=== PATIENT | female | born 1945 | race Caucasian/White ===

== ENCOUNTER → 2016-06-23 | Outpatient (CLI) | payer OTHER | LOC: MMPC 10:00 | PROVIDERS: ATTEND Podiatrist Foot & Ankle Surgery | DX: B35.1 Tinea unguium (principal) | CPT/HCPCS: 99213; G0463 ==

== ENCOUNTER → 2016-09-27 | Outpatient (CLI) | payer OTHER | LOC: MMPC 09:00 | PROVIDERS: ATTEND Family Medicine | DX: I10 Essential (primary) hypertension (principal); J45.909 Unspecified asthma, uncomplicated; M25.521 Pain in right elbow; Z23 Encounter for immunization | CPT/HCPCS: 90732; 99214; G0463 ==

== ENCOUNTER → 2016-10-21 | Outpatient (CLI) | payer OTHER | LOC: MMPC 10:00 | PROVIDERS: ATTEND Podiatrist Foot & Ankle Surgery | DX: B35.1 Tinea unguium (principal) | CPT/HCPCS: 99212; G0463 ==

== ENCOUNTER 2016-11-24 08:32 | Emergency (ER) | payer OTHER ==
[2016-11-24] MEDS ORDERED: IPRATROPIUM/ALBUTEROL SULFATE 3 ML NEB NEB ONE (08:50)
[2016-11-24] MEDS ORDERED: Belladon/PHENobarbital Elixir 10 ML, Lidocaine Viscous Liquid 2% 15 ML, Mag Hyd/Al Hyd/... PO ONE ×3 (08:50)
[2016-11-24] MEDS ORDERED: Pantoprazole Inj 40 MG in Normal Saline Flush 10 ML IVP ONE (08:50)
[2016-11-24 08:58] LABS: BASOPHILS # (AUTO) 0.05 10*3/UL; BASOPHILS % (AUTO) 0.3 % (0-1); EOSINOPHILS # (AUTO) 0.64 10*3/UL; EOSINOPHILS % (AUTO) 4.4 % (0-8); HEMATOCRIT 38.5 % (37.0-47.0); HEMOGLOBIN 13.1 g/dL (12.0-16.0); LYMPHOCYTES # (AUTO) 1.06 10*3/uL; MEAN CORPUSCULAR HEMOGLOBIN 31.1 PG (27-31); MEAN CORPUSCULAR VOLUME 91.4 FL (81-99); MONOCYTES # (AUTO) 1.34 10*3/UL (0.3-0.8); MONOCYTES % (AUTO) 9.2 % (5-15); NEUTROPHILS # (AUTO) 11.37 10*3/UL; NEUTROPHILS % (AUTO) 78.5 % (50-80); RED BLOOD COUNT 4.21 10^6/uL (4.20-5.40)
[2016-11-24 08:59] LABS: PLATELET MORPHOLOGY COMMENT NORMAL MORPHOLOGY (NORM); RBC MORPHOLOGY COMMENT NORMAL MORPHOLOGY (NORM); WBC MORPHOLOGY COMMENT NORMAL MORPHOLOGY (NORM)
[2016-11-24] MEDS ORDERED: Sodium Chloride 0.9% 1,000 ML PRIMARY IV ONE (09:03)
[2016-11-24 09:04] LABS: BLOOD UREA NITROGEN 12 mg/dL (7-22); CALCIUM 9.6 mg/dL (8.7-10.7); EST GLOMERULAR FILTRATION > 60 (>60 ml/min/1.73m(2)); SERUM ALBUMIN 4.3 g/dL (3.5-4.8)
--- NOTE | 2016-11-24 09:04 | PDOC ---
Dyspnea HPI - General Chief Complaint: Chest Pain Stated Complaint: chest pain Date Seen by Provider: 11/24/16 Time Seen by Provider: 09:04 - History of Present Illness Initial Comments: Patient's very nice 71-year-old woman who presents to the emergency department after having onset of some shortness of breath and some neck symptoms. She states that she was fine in her usual state of health through the morning till about 5 AM. Around 5 AM she started to develop some increased shortness of breath which she thought might just be asthma. He took some inhaled medications did not seem to get much better than started to develop significant pain in the base of her neck anteriorly which is similar to pain that she gets when she has reflux. Ultimately she decided to come to the emergency department for further evaluation. Here in the emergency department she is complaining that she still has that pain in the base of her neck and she still feels like she can't get a deep breath. If she does take a deep breath she does have discomfort in the base of her neck and into her chest some. She denies any fever or chills recent cough no neck trauma she also has no past history of cardiac issues however however she does take hormone replacement therapy. - Patient Home Medications Home Medications: Home Medications Cetirizine HCl [Zyrtec] 10 mg PO QD PRN tab 02/20/13 Diphenhydramine HCl [Benadryl] 50 mg PO Q4H PRN cap 02/20/13 Albuterol Sulfate [Proventil Hfa] 1 - 2 puff INH Q4-6H PRN #1 puff 08/27/14 Aspirin 81 mg PO DAILY tab 05/13/16 Biotin 800 mcg PO tab 05/13/16 Calcium Carbonate [Calcium] 1 tab PO QD tab 05/13/16 Glucosamine Sulfate 2Kcl [Glucosamine] 1,000 mg PO QD tab 05/13/16 Ubidecarenone [Co Q10] 200 mg PO QD PRN cap 05/13/16 Omeprazole Magnesium [Prilosec Otc] 1 tab PO QD #90 tab 09/03/16 Estradiol 0.5 mg PO QD #90 tab 11/23/16 Losartan Potassium 1 tab PO QD #90 tab 11/23/16 - Patient Allergies Allergies/Adverse Reactions: Allergies Allergy/AdvReac Type Severity Reaction Status Date / Time Sulfa (Sulfonamide Allergy Mild RASH Verified 11/24/16 08:42 Antibiotics) Past Medical History - heen HEENT History: Denies History Cardiovascular History: Denies History Respiratory History: Asthma Gastrointestinal History: Denies History Genitourinary History: Denies History Musculoskeletal History: Other (please comment) (Multiple surgeries on her right hand) Past Medical History Reviewed: Reviewed - No Changes ROS - Limitations ROS Limitations: No Limitations Constitution: DENIES: Chills, Fever Neurological: REPORTS: Denies Neuro Symptoms Gastrointestinal: REPORTS: Denies GI Symptoms Dyspnea Physical Exam - General Appearance General Appearance: REPORTS: Alert, Cooperative, No Acute Distress - HEENT HEENT: POSITIVE: Head Inspection Nml, Eyes Inspection Nml - Neck Neck: REPORTS: Normal Inspection - Respiratory Respiratory: REPORTS: No Respiratory Distress, Breath Sounds Normal, No Pleuritic Chest Pain - Cardiovascular Cardiovascular: REPORTS: Regular Rate and Rhythm, Heart Sounds Normal - Abdomen Abdomen: Soft: (All Quadrants), Normal Bowel Sounds: (All Quadrants), Denies Tenderness: (All Quadrants) - Skin Skin: REPORTS: Intact, Normal For Race Patient Care Time - Estimated PCT Patient Care Time (In Minutes): 15 Vital Signs - VS Reviewed Vital Signs Reviewed: Yes Discharge Clinical Impression: Dyspnea Qualifiers: Dyspnea type: dyspnea on exertion Qualifier Code: (R06.09) Other forms of dyspnea Condition: Stable
[2016-11-24 09:11] VITALS: RESP 16; TEMP 97.3
--- NOTE | 2016-11-24 09:51 | DI ---
PA /LATERAL CHEST X-RAY, 11/24/2016 8:50 AM : Clinical History: Shortness of breath. Previous Exam: None at this facility. There is no acute soft tissue or bony abnormality. Heart size is normal. Lungs are clear. Mediastinal structures are normal. There are no pulmonary nodules. There is mild to moderate dextroscoliosis of the mid lumbar spine. Reading: Normal chest x-ray.
[2016-11-24] MEDS ORDERED: ONDANSETRON 4 MG/2 ML VIAL IVP ONE (10:22)
[2016-11-24] MEDS ORDERED: MORPHINE SULFATE 2 MG/1 ML IVP ONE (10:22)
--- NOTE | 2016-11-24 11:21 | DI ---
CT ANGIOGRAM OF THE CHEST, 11/24/2016 10:06 AM : Clinical History: Pleuritic chest pain with elevated D-dimer test. Previous Exam: None at this facility. Scans are performed from the base of the neck to the lower lung bases following IV administration of 65 mL of Isovue 300. Proprietary automated bolus tracking software was not used to verify the timing of the injection. The base of the neck and thoracic inlet are normal. There are no abnormal axillary, supraclavicular, mediastinal, or hilar nodes. The heart in the ascending and descending aorta are normal. The pulmonar y arteries are normal. There is no pulmonary arterial hypertension. There is no evidence of pulmonary embolism or pulmonary infarction. The lungs are clear and there are no pulmonary nodules or masses. Both adrenal glands, the spleen and the visualized portions of the pancreas there is diffuse fatty in filtration in the visualized portions of the liver are otherwise normal. Are normal. READIN. Normal CTA of the chest. There are no pulmonary emboli or pulmonary infarcts. The aorta is normal . 2. Fatty infiltration of the liver.
[2016-11-24] MEDS ORDERED: KETOROLAC 15 MG/1 ML VIAL IVP ONE (11:25)
--- NOTE | 2016-11-24 14:43 | EKG ---
[address] [address] Measurements Intervals [place] Rate: 85 P: 73 MT: 156 QRS: 59 QRSD: 102 T: 39 QT: 333 QTc: 375 Interpretive Statements SINUS RHYTHM WITH OCCASIONAL ECTOPIC PREMATURE COMPLEXES No previous ECG available for comparison Electronically Signed On 11-25-16 09:53:48 MDT by Barry Jaramillo [email or web address]
--- NOTE | 2016-11-24 16:28 | PDOC ---
Transfer of Care - Care Accepted Time Care Transferred: 09:00 Report from Transferring Physician Received: Yes (Dr. Henson) MDM / ED Course: The patient is a 71-year-old female who had presented to the emergency department with complaints of pain in her neck as well as between her shoulder blades. She states that she has a history of asthma and when she woke up this morning she seemed like she was having some increased wheezing as well as some pain up in her neck/throat region. She tried taking her inhaler which did not seem to help a whole lot. The pain subsequently became worse in her neck and between her shoulder blades. This pain is worsened with taking a deep breath. She subsequently presented to the emergency department. She was initially evaluated per Dr. Henson. Initial EKG showed a normal sinus rhythm with no acute changes. Blood work and chest x-ray had been ordered. The patient also received a DuoNeb as well as a GI cocktail and IV Protonix. She does report some increased reflux symptoms recently. In addition she has been having some low back pain with radiation down her left leg for about a month. She took a prednisone taper which she completed about 2 weeks ago. In addition she has been taking ibuprofen 800 mg every 4-6 hours recently. She denies any associated nausea, abdominal pain, numbness or weakness in her extremities or any other associated complaints. She does not have any known history of heart disease. She does have a history of hypertension. Home Medications: Home Medications Cetirizine HCl [Zyrtec] 10 mg PO QD PRN tab 02/20/13 Diphenhydramine HCl [Benadryl] 50 mg PO Q4H PRN cap 02/20/13 Albuterol Sulfate [Proventil Hfa] 1 - 2 puff INH Q4-6H PRN #1 puff 08/27/14 Aspirin 81 mg PO DAILY tab 05/13/16 Biotin 800 mcg PO DAILY tab 05/13/16 Calcium Carbonate [Calcium] 1 tab PO QD tab 05/13/16 Glucosamine Sulfate 2Kcl [Glucosamine] 1,000 mg PO QD tab 05/13/16 Ubidecarenone [Co Q10] 200 mg PO QD PRN cap 05/13/16 Omeprazole Magnesium [Prilosec Otc] 1 tab PO QD #90 tab 09/03/16 Estradiol 0.5 mg PO QD #90 tab 11/23/16 Losartan Potassium 1 tab PO QD #90 tab 11/23/16 Allergies/Adverse Reactions: Allergies Sulfa (Sulfonamide Antibiotics) Allergy (Mild, Verified 11/24/16 08:42) RASH Vital Signs Reviewed: Yes Nurse's Notes Reviewed & Considered: Yes - Pending Patient Care Items Pending Patient Care Items: POSITIVE: Labs, X-ray Results - Re-Evaluation of Patient Disposition of Patient: POSITIVE: Discharged Counseled: POSITIVE: Patient, RE: Lab Results, RE: Radiology Results, RE: DX, RE : Need for F/U - Results Reviewed Lab Results Reviewed by Me: Yes Lab Results: Laboratory Results 11/24/16 11/24/16 11/24/16 Range/Units 08:50 09:37 11:31 WBC 14.50 H (4.8-10.8) 10^3/uL RBC 4.21 (4.20-5.40) 10^6/uL Hgb 13.1 (12.0-16.0) g/dL Hct 38.5 (37.0-47.0) % MCV 91.4 (81-99) FL MCH 31.1 H (27-31) PG MCHC 34.0 (33-37) g/dL RDW Std Deviation 41.4 (39-50) fL RDW Coeff of Brie 12.5 (11.5-14.5) % Plt Count 301 (140-350) 10*3/uL MPV 9.0 (7.4-12.2) FL Immature Gran % (Auto) 0.3 (0-5) % Neut % (Auto) 78.5 (50-80) % Lymph % (Auto) 7.3 L (10-50) % [place] % (Auto) 9.2 (5-15) % Eos % (Auto) 4.4 (0-8) % Baso % (Auto) 0.3 (0-1) % Immature Gran # (Auto) 0.04 10*3/UL Neut # (Auto) 11.37 10*3/UL Lymph # (Auto) 1.06 10*3/uL [place] # (Auto) 1.34 H (0.3-0.8) 10*3/UL Eos # (Auto) 0.64 10*3/UL Baso # (Auto) 0.05 10*3/UL WBC Morphology Comment Normal morphology (NORM) Plt Morphology Comment Normal morphology (NORM) RBC Morph Comment Normal morphology (NORM) D-Dimer 0.62 H (0.00-0.59) mg/L Sodium 127 L (135-145) meq/L Potassium 4.7 (3.8-5.2) meq/L Chloride 93 L (98-112) meq/L Carbon Dioxide 25 (23-33) meq/L Anion Gap 9 (5-20) BUN 12 (7-22) mg/dL Creatinine 0.6 (0.50-1.20) mg/dL Estimated GFR > 60 (>60 ml/min/1.73m(2)) BUN/Creatinine Ratio 20.00 (6-20) Glucose 102 (78-110) mg/dL Calculated Osmolality 263.0 L (267-292) mOsm/kg Calcium 9.6 (8.7-10.7) mg/dL Total Bilirubin 0.7 (0.3-1.2) mg/dL AST 33 (8-39) IU/L ALT 36 (9-52) IU/L Alkaline Phosphatase 66 (38-126) IU/L Troponin I < 0.012 < 0.012 (< 0.040) ng/mL NT-Pro-B Natriuret Pep 174 H (0-125) PG/ML Total Protein 7.5 (6.1-8.0) g/dL Albumin 4.3 (3.5-4.8) g/dL Globulin 3.1 (2.50-4.10) g/dL Albumin/Globulin Ratio 1.30 (1.3-2.0) mg/g EKG Interpreted/Reviewed By Me:: Yes EKG Interpretation:: POSITIVE: Normal Sinus Rhythm, Normal Rate, Normal Intervals, Normal QRS, Normal ST/T - Consult Recommendations:: When I took over care of the patient lab and x-ray were still pending. These were reviewed and revealed a normal troponin with mildly elevated d-dimer. Her chest x-ray was unremarkable, her other lab work was unremarkable except for a sodium which was slightly low at 127 and a white count that was elevated at 14. Shortly after my initial evaluation she stated that the pain between her shoulders was becoming somewhat worse. Her d-dimer was mildly elevated and she underwent CTA of the chest. She was offered morphine and Zofran for pain however refused. The CTA of her chest was normal per radiologist with no evidence of PE or dissection. Findings were discussed with the patient. She was having continued pain between her shoulder blades and some in her neck. The GI cocktail did not really help significantly. Her breathing she stated felt significantly better after the DuoNeb. I did recommend that the patient be admitted for further cardiac monitoring and testing. She stated that she did not want to be admitted in the hospital. She agreed to have a repeat troponin which was done and was also negative. In addition after her CTA was negative she did receive Toradol 15 mg IV with improvement in pain. At this point the pain etiology remains unclear. She has been taking a lot of ibuprofen and I question whether she may have some gastritis or esophagitis related to this. She was advised to increase Prilosec to 20 mg twice a day. She was advised to limit ibuprofen to 800 mg no more than 3 times a day. She was offered pain medication however refused. She was instructed to return to the emergency room if she develops any worsening or change in symptoms. She is advised follow-up with Dr. Rodas in 5-7 days to discuss any further workup. Patient Care Time - Estimated PCT Patient Care Time (In Minutes): 30 Vital Signs - Recent Vital Signs Vital Signs: Vital Signs (Last 8 hours) Temp Pulse Resp BP Pulse Ox 11/24/16 08:32 97.3 F 99 16 204/86 96 - VS Reviewed Vital Signs Reviewed: Yes Discharge Clinical Impression: Asthma, Neck pain, Chest pain Dyspnea Qualifiers: Dyspnea type: dyspnea on exertion Qualifier Code: (R06.09) Other forms of dyspnea Discharge Disposition: Discharged to Home Condition: Stable Patient Instructions Given at Discharge: Chest Pain (ED), Asthma (ED) Additional Instructions: The testing done here in the emergency department revealed an EKG that did not show any evidence of heart attack or any other abnormalities. The blood tests were negative for any sign of heart damage twice. We also did a CAT scan of your chest which did not reveal any evidence of blood clots or problems with the aorta or any other obvious cause of your pain. The pain you are experiencing in your neck and between her shoulders may be muscular or originating from your back/neck. In addition it's possible he may have some irritation of your esophagus or stomach from the recent increased ibuprofen usage. Even though the testing done here today does not reveal any evidence of heart issues and this is still a possibility as well. I would recommending discussing doing a stress test with your primary care provider. In addition I would recommend increasing Prilosec to twice a day for the next week or 2. Reduce ibuprofen usage to 800 mg 3 times a day at the maximum. In addition you can take the muscle relaxer that was previously prescribed as needed. Recommend returning to the emergency room if increased pain, any worsening or change in symptoms. Follow-up with your primary care provider in 3-5 days. Follow Up With: LUCY RODAS [Primary Care Provider] -
[2016-11-24] MEDS ORDERED: Sodium Chloride 0.9% 1,000 ML ONE (18:16)
== END 2016-11-24 12:29 | disposition home or self-care (01) ==
LOC: ER 08:32
DX: J45.909 Unspecified asthma, uncomplicated (principal); R06.09 Other forms of dyspnea; M54.2 Cervicalgia; R07.9 Chest pain, unspecified; R79.1 Abnormal coagulation profile; M54.5 Low back pain; R06.02 Shortness of breath
CPT/HCPCS: 36415; 71020; 71275; 80053; 83880; 84484; 85025; 85379; 93005; 93010; 94640; 96374; 96375; 99284 ×2; J7620; J1885; J2270; J2405; J3490; J7030

== ENCOUNTER → 2016-12-30 | Outpatient (CLI) | payer OTHER | LOC: MMPC 10:00 | PROVIDERS: ATTEND Podiatrist Foot & Ankle Surgery | DX: B35.1 Tinea unguium (principal) | CPT/HCPCS: 99212; G0463 ==